=== PATIENT | female | born 1950 ===

== ENCOUNTER 2023-12-24 05:58 | Day surgery (SDC) | payer MEDICARE, OTHER, SELFPAY ==
--- NOTE | 2023-11-19 12:07 | CM ---
Patient is scheduled for an elective L TKR on 12/24/23- she is a same day patient. Spoke with patient prior to surgery. Introduced role of Orthopedic Navigator. Patient reports that he lives with her in a two story home. There are two (1-1)
steps to enter and a flight of steps to the second floor. She currently functions independently. She has no DME and has never had VN services. PCP is Margarita Delvalle.
Discussed orthopedic program and post surgical plans. Reviewed that she will have VN services initially (medicare.gov website and ratings reviewed) and will then start outpatient PT. Patient selects [facility] for her home care needs and is unsure
where she will go for outpatient PT.
Patient is in agreement with plan and states that her will be home with her.
Patient will complete online education.
Plan: Orthopedic Navigator will remain available to assist with the care of patient and will reassess discharge needs after surgery.
[2023-11-30 13:53] LABS: Hematocrit 34.5 % (37.0-47.0); Hemoglobin 11.7 g/dL (12.0-16.0); Mean Corp Hgb Conc. 33.9 g/dL (33.0-37.0); Mean Corpuscular Hgb 29.7 pg (27.0-31.0); Mean Corpuscular Volume 87.6 fL (81.0-99.0); Mean Platelet Volume 10.8 fL (7.4-10.4); Platelet Count 319 10^3/uL (130-400); Red Blood Cell Count 3.94 10^6/uL (4.20-5.40); Red Cell Dist. Width 12.9 % (11.5-14.5); White Blood Cell Count 6.8 10^3/uL (4.8-10.8)
[2023-11-30 14:22] VITALS: BMI 27.0
[2023-11-30 14:30] LABS: ALT (SGPT) 17 U/L (0-35); AST (SGOT) 29 U/L (14-36); Albumin 4.8 g/dl (3.5-5.0); Alkaline Phosphatase 79 U/L (38-126); Blood Urea Nitrogen 36 mg/dl (7-17); Carbon Dioxide 27 mmol/L (22-30); Chloride 101 mmol/L (98-107); Estimated Creatinine Clearance 30 ml/min; Glucose 105 mg/dl (70-99); Potassium 4.2 mmol/L (3.5-5.1); Sodium 140 mmol/L (135-145); Total Bilirubin 0.5 mg/dl (0.2-1.3); Total Protein 7.5 g/dl (6.3-8.2)
[2023-12-01 08:57] LABS: Glycohemoglobin (HgbA1c) 5.7 % (4.0-5.6)
[2023-12-17 13:53] VITALS: BMI 27.0
--- NOTE | 2023-12-21 11:36 | VNURNOTE ---
Late entry from 12/17: H&P emailed to Asa Armstrong and Espinoza Quan at [facility]. Confirmed receipt and acceptance of patient- SDS on 12/23.
[2023-12-24] VITALS (15 sets, daily range): BP systolic 101–148; BP diastolic 58–80; BMI 27.0
[2023-12-24] MEDS: CELEBREX 200 MG PO (06:44)
[2023-12-24] MEDS: TYLENOL 650 MG PO (06:44)
[2023-12-24] MEDS: NORMOSOL-R 1000 IV (06:45)
[2023-12-24] MEDS: ANCEF 5 IV (11:28)
--- NOTE | 2023-12-24 15:39 | OR.RPT ---
Operative Report
Operative Report
Orthopaedic Surgery Operative Note
DATE OF OPERATION: 12/24/2023
PREOPERATIVE DIAGNOSES: Osteoarthritis, left knee.
POSTOPERATIVE DIAGNOSES: Osteoarthritis, left knee.
OPERATION PERFORMED:
1) Left total knee arthroplasty (CPT 95691)
2) Intraosseous administration of analgesic (CPT 34707)
SURGEON: Romeo Byers MD
ASSISTANTS: Sergey Dale PA-C who helped with patient and limb positioning and retraction
ANESTHESIA: Spinal by anesthesia plus intraoperative infusion of morphine into the tibial metaphysis by Dr. Byers
COMPLICATIONS: None.
ESTIMATED BLOOD LOSS: 20mL
DRAINS: None
TOURNIQUET TIME: 46 minutes.
IMPLANTS:
- Sheila Persona CR Femur, size 8
- Sheila Persona tibia base plate, size C
- Sheila Persona ultracongruent articular surface, 12 mm
- All-polyethylene patellar component, size 29
- DJO [place] bone cement
INDICATIONS: The patient presented to my office with debilitating left knee pain due to osteoarthritis. We reviewed the natural history of this problem, as well as the risks, benefits, and alternatives of various treatment options. The patient
exhausted all nonoperative treatment options and wished to proceed with knee replacement surgery. The patient understood the risks which included, but were not limited to, bleeding, infection, failure to relieve pain, more pain than preop, damage to
blood vessels and nerves, need for reoperation, mechanical failure of the implants, wound healing problems, stiffness, instability, blood clot, pulmonary embolism, myocardial infarction, pneumonia, arrhythmia, CVA, and . The patient accepted
these risks and wished to proceed. All questions were answered, and informed consent was obtained.
PROCEDURE IN DETAIL: The patient was identified in the preoperative holding area. The left knee was identified as the operative site. The patient was taken in the operating room and placed in a supine position on the operating table. Spinal
anesthesia was performed. IV antibiotics and tranexamic acid were administered. An SCD was placed on the right lower extremity. A well-padded tourniquet was placed on the proximal thigh. All bony prominences were well padded. The left lower
extremity was prepped and draped in the usual sterile fashion.
We performed a surgical time-out. An interarticular block was performed with local anesthetic with epinephrine. The limb was exsanguinated with an Esmarch bandage, then the tourniquet was inflated to 250 mmHg. I performed interosseous administration
of morphine-saline solution via a Jamshidi style intraosseous needle into the proximal medial tibial metaphysis as described by Babatunde Call MD. This was performed to aid in pain control. A midline skin incision was made followed by a medial
parapatellar arthrotomy. A subperiosteal peel was performed on the medial tibia. I excised part of the infrapatellar fat pad to improve our visualization as well as tissue over anterior femur. The patella was everted and the knee was flexed. I
excised the remnants of the anterior and posterior cruciate ligaments as well as tibial and femoral osteophytes with rongeurs.
The knee was flexed, and the extramedullary tibial cutting guide was aligned. Walton was aligned at neutral, rotation was centered on the tibial tubercle, and coronal alignment was aligned with the mechanical axis of the tibia and center of the ankle
joint. The cut height was 10mm off the lateral tibia joint surface. The guide was secured into place. The MCL and LCL were protected. The tibia surface was cut. The cut surface was inspected after removal to ensure appropriate height and slope based
on the preoperative plan. The cut was checked with a drop marika. It was centered nicely at the ankle.
A drill was used to open the femoral canal. The intramedullary distal femoral cutting guide was inserted into the femur. This was set at 5 degrees +0. This was secured into place with three pins. The cut level was checked with an mena wing. The
distal femur was cut through the cutting guide. The IM guide was reinserted to double check that the level of resection was flush and in appropriate alignment.
Jayde's line and the transepicondylar axis were marked on the femur. The femoral sizing guide was applied to the anterior femur. Pins were inserted, and the 4-in-1 cutting guide was applied and secured into place. The rotation was compared to
Harding's line, the transepicondylar axis, and the neutral tibia cut and was found to be appropriate. The width was checked and found to be appropriate and lateralized on the femur. The anterior, posterior, and chamfur cuts were made. A lamina
mainstreaming facilitator was used to open the flexion gap, and posterior osteophytes were removed with a curved osteotome. The remnant medial and lateral meniscus were also removed. I prophylactically cauterized the lateral geniculate arteries. A 10mm spacer block
was applied to the flexion gap and was noted to be balanced medially and laterally. The knee was extended, and the block showed symmetric to extension and flexion gaps.
The tibia was exposed and sized. Rotation was set in line with the tibial tubercle and congruent with the femur. The D tibia was too wide A to P on the lateral side, so C was seleted. The trial was secured into place with two pins. The trial femur
was impacted into place, and a trial articular surface was placed. The knee was taken through range of motion and noted to be stable throughout the arc of motion without gaping or excess tension. In extension, a measured resection of the patella was
performed. The patella was sized, and lug holes were drilled. A trial patella component was applied, and it was noted to track centrally throughout the arc of motion without need for further releases.
The trials were removed. The tibia keel was prepared with the punch and the drill. The bone surfaces were irrigated with sterile saline and dried. The cement was mixed in a vacuum mixer. Cement gun was used to apply cement to the tibial surface and
the undersurface of the tibial implant. Cement was pressurized into the tibial canal and tibia surface. The tibial component was impacted into place. Excess cement was removed. Cement was applied to the femoral surface and the femoral component. The
femoral component was impacted into place, and excess cement removed. A trial articular surface was inserted, and the knee was extended while the cement polymerized. The tourniquet was let down, and meticulous hemostasis was achieved. Dilute
betadine was poured into the wound and allowed to soak for 3 minutes. The knee was irrigated with copious normal saline.
Once the cement was polymerized, the trial articular surface was removed. Any excess cement was removed. The knee was trialed, and the final articular surface was selected and inserted into the tibial locking mechanism. The knee was reduced. A fresh
drape was applied to the surgical field.
The arthrotomy was closed with 0-PDS. Once closed, an interarticular block was performed with local anesthetic with epi. The deep dermal layer was closed with 2-0 PDS, and the subcuticular skin was closed with 3-0 monocryl. A Dermabond Prineo
dressing was applied to the skin in full flexion. Once this was completely dry, a sterile waterproof dressing was applied.
The anesthesia team performed an adductor canal block in the OR. The patient awoke from anesthesia without any difficulties. The sponge and instrument counts were correct x2 at the end of the case.
Carlos Byers MD
--- NOTE | 2023-12-24 15:49 | PTCARENOTE ---
1415 PT Jody Christiano here for post op PT evaluation, asked Gabriela Walker RN who notified home care about pt's soon departure and delay today. . [facility] called directly . No calls taken today by sds or by pt prior to this time by pt's
cell from [facility]. Pt ready for discharge at 1430, sitting in wheelchair till we contact Home Health. [facility] confirmed via #[phone] they will meet pt at her [facility] and home PT at 1545. pt wheeled to car via w/c at
1510 Gabriela Walker RN
== END 2023-12-24 15:05 | disposition home or self-care (01) ==
LOC: SDS 05:58
PROVIDERS: ATTENDING PHYSICIAN Orthopaedic Surgery; FAMILY PHYSICIAN Family Medicine
DX: M17.12 Unilateral primary osteoarthritis, left knee (principal)
CPT/HCPCS: 27447; 36415; 73560; 80053; 83036; 85027; 86850; 86870; 86880; 86900; 86901; 86905; 87070; 93005; 97163; C1713; C1776

== ENCOUNTER 2024-05-26 06:08 | Day surgery (SDC) | payer MEDICARE, OTHER, SELFPAY ==
--- NOTE | 2024-05-12 11:16 | VNURNOTE ---
Patient is scheduled for an elective R TKR on 05/26/24- she is a same day patient. Spoke with patient prior to surgery. Introduced role of [facility] Liaison. Patient reports that she lives with her in a two story home. There are two (1-1) steps to
enter and a flight of steps to the second floor. She currently functions independently. She has rolling walker and ice pack . She had [facility] VN services for prior knee replacement in Dec. PCP is Margarita Delvalle.
Discussed orthopedic program and post surgical plans. Reviewed that she will have VN services initially and will then start outpatient PT. Patient out of [facility] service area. She will be set up with [facility] for her home care needs. Patient has
outpt PT appt scheduled for 05/30/24. Referral emailed to Espinoza at [facility].
Patient is in agreement with plan and states that her will be home with her. Advised to bring rolling walker with her day of surgery.
Plan: [facility] SDS 05/26/24 then [facility] outpt PT 05/30.
[2024-05-13 13:26] VITALS: BMI 27.0
[2024-05-13 15:07] LABS: Hematocrit 35.5 % (37.0-47.0); Hemoglobin 11.6 g/dL (12.0-16.0); Mean Corp Hgb Conc. 32.7 g/dL (33.0-37.0); Mean Corpuscular Hgb 29.1 pg (27.0-31.0); Mean Corpuscular Volume 89.2 fL (81.0-99.0); Mean Platelet Volume 10.1 fL (7.4-10.4); Platelet Count 301 10^3/uL (130-400); Red Blood Cell Count 3.98 10^6/uL (4.20-5.40); Red Cell Dist. Width 14.1 % (11.5-14.5); White Blood Cell Count 6.8 10^3/uL (4.8-10.8)
[2024-05-13 15:47] LABS: ALT (SGPT) 19 U/L (0-35); AST (SGOT) 22 U/L (14-36); Albumin 4.5 g/dl (3.5-5.0); Alkaline Phosphatase 75 U/L (38-126); Blood Urea Nitrogen 32 mg/dl (7-17); Calcium 9.7 mg/dl (8.4-10.2); Carbon Dioxide 28 mmol/L (22-30); Chloride 100 mmol/L (98-107); Estimated Creatinine Clearance 30 ml/min; Glucose 85 mg/dl (70-99); Potassium 4.2 mmol/L (3.5-5.1); Sodium 139 mmol/L (135-145); Total Bilirubin 0.4 mg/dl (0.2-1.3); Total Protein 7.2 g/dl (6.3-8.2); eGFR 36.57
[2024-05-20 12:34] VITALS: BMI 27.0
[2024-05-26] VITALS (13 sets, daily range): BP systolic 108–153; BP diastolic 60–86; PULSE 95; O2SAT 96
[2024-05-26] MEDS: TYLENOL 650 MG PO (06:14)
[2024-05-26] MEDS: CELEBREX 200 MG PO (06:14)
[2024-05-26] MEDS: NORMOSOL-R/PLASMALYTE-A 1000 IV (06:36)
--- NOTE | 2024-05-26 06:46 | W.DS.TRANS ---
DC Summary - Emd Teacher
-
Discharge Instructions:
Sleep Apnea Risk Low
Discharge Diagnosis/Procedures R TKA 05/26/24
Diet As tolerated
Activity With Walker
Driving Restrictions No driving
Bathing Restrictions OK to Shower
Other Services PT
Instructions:
Stand-Alone Forms: SDS Total Hip and Knee D/C
Changes to Home Medications: Yes
Discharge Medications:
DC Medications w/original date entered in [employer]
albuterol sulfate 90 mcg/actuation aerosol inhaler 1 inh inhalation QIDPRN PRN shortness of breath 12/17/23
ezetimibe 10 mg tablet (Zetia) 10 mg PO DAILY 12/17/23
fenofibrate 54 mg tablet 54 mg PO DAILY 12/17/23
hydrochlorothiazide 25 mg tablet 25 mg PO DAILY 12/17/23
montelukast 10 mg tablet 10 mg PO QPM 12/17/23
multivitamin 1 tab PO DAILY 12/17/23
sertraline 200 mg capsule 200 mg PO DAILY 12/17/23
azelastine 137 mcg (0.1 %) nasal spray 1 spray intranasal BID 05/20/24
biotin 1,000 mcg chewable tablet 1,000 mcg PO DAILY 05/20/24
calcium carbonate 500 mg PO DAILY 05/20/24
cholecalciferol (vitamin D3) 25 mcg (1,000 unit) tablet (Vitamin D3) 25 mcg PO DAILY 05/20/24
flaxseed oil 1,000 mg capsule 1,000 mg PO DAILY 05/20/24
fluticasone 250 mcg-salmeterol 50 mcg/dose blistr powdr for inhalation (Advair Diskus) 1 inh inhalation Q12H 05/20/24
lactobacillus combination no.4 3 billion cell capsule (Probiotic) 3,000 mmu cells PO DAILY 05/20/24
mupirocin 2 % topical ointment 1 applic topical BID 05/20/24
acetaminophen 300 mg-codeine 30 mg tablet 1 tab PO Q4H PRN moderate-severe pain #30 tabs 05/26/24
aspirin 325 mg tablet 325 mg PO DAILY blood clot prevention #1 tab 05/26/24
dexamethasone 4 mg tablet 4 mg PO BID inflammation #6 tabs 05/26/24
docusate sodium 100 mg capsule (Colace) 100 mg PO BID stool softner #1 cap 05/26/24
magnesium hydroxide 400 mg/5 mL oral suspension (Milk of Magnesia) 30 ml PO HS PRN Constipation #1 mL 05/26/24
ondansetron 4 mg disintegrating tablet 4 mg PO Q6H PRN n/v #20 tabs 05/26/24
sennosides 8.6 mg tablet (Senokot) 17.2 mg (2 x 8.6 mg) PO BID laxative #2 tabs 05/26/24
Home Medication Changes
acetaminophen 300 mg-codeine 30 mg tablet 1 tab PO Q4H PRN moderate-severe pain #30 tabs 05/26/24
aspirin 325 mg tablet 325 mg PO DAILY blood clot prevention #1 tab 05/26/24
dexamethasone 4 mg tablet 4 mg PO BID inflammation #6 tabs 05/26/24
docusate sodium 100 mg capsule (Colace) 100 mg PO BID stool softner #1 cap 05/26/24
magnesium hydroxide 400 mg/5 mL oral suspension (Milk of Magnesia) 30 ml PO HS PRN Constipation #1 mL 05/26/24
ondansetron 4 mg disintegrating tablet 4 mg PO Q6H PRN n/v #20 tabs 05/26/24
sennosides 8.6 mg tablet (Senokot) 17.2 mg (2 x 8.6 mg) PO BID laxative #2 tabs 05/26/24
Pending Results: No
--- NOTE | 2024-05-26 09:04 | OR.RPT ---
Operative Report
Operative Report
Orthopaedic Surgery Operative Note
DATE OF OPERATION: 05/26/2024
PREOPERATIVE DIAGNOSES: Osteoarthritis, right knee.
POSTOPERATIVE DIAGNOSES: Osteoarthritis, right knee.
OPERATION PERFORMED:
1) Right total knee arthroplasty (CPT 94043)
2) Intraosseous administration of analgesic (CPT 59630)
SURGEON: Romeo Byers MD
ASSISTANTS: Desmond Davis PA-C who helped with patient and limb positioning and retraction
ANESTHESIA: Spinal by anesthesia plus intraoperative infusion of morphine into the tibial metaphysis by Dr. Byers
COMPLICATIONS: None.
ESTIMATED BLOOD LOSS: 20mL
DRAINS: None
TOURNIQUET TIME: 46 minutes.
IMPLANTS:
- Sheila Persona CR Femur, size 8
- Sheila Persona tibia base plate, size C
- Sheila Persona medial constrained articular surface, 12 mm
- All-polyethylene patellar component, size 29
- DJO [place] bone cement
INDICATIONS: The patient presented to my office with debilitating right knee pain due to osteoarthritis. We reviewed the natural history of this problem, as well as the risks, benefits, and alternatives of various treatment options. The patient
exhausted all nonoperative treatment options and wished to proceed with knee replacement surgery. The patient understood the risks which included, but were not limited to, bleeding, infection, failure to relieve pain, more pain than preop, damage to
blood vessels and nerves, need for reoperation, mechanical failure of the implants, wound healing problems, stiffness, instability, blood clot, pulmonary embolism, myocardial infarction, pneumonia, arrhythmia, CVA, and . The patient accepted
these risks and wished to proceed. All questions were answered, and informed consent was obtained.
PROCEDURE IN DETAIL: The patient was identified in the preoperative holding area. The right knee was identified as the operative site. The patient was taken in the operating room and placed in a supine position on the operating table. Spinal
anesthesia was performed. IV antibiotics and tranexamic acid were administered. An SCD was placed on the left lower extremity. A well-padded tourniquet was placed on the proximal thigh. All bony prominences were well padded. The right lower
extremity was prepped and draped in the usual sterile fashion.
We performed a surgical time-out. An interarticular block was performed with local anesthetic with epinephrine. The limb was exsanguinated with an Esmarch bandage, then the tourniquet was inflated to 250 mmHg. I performed interosseous administration
of morphine-saline solution via a Jamshidi style intraosseous needle into the proximal medial tibial metaphysis as described by Babatunde Call MD. This was performed to aid in pain control. A midline skin incision was made followed by a medial
parapatellar arthrotomy. A subperiosteal peel was performed on the medial tibia. I excised part of the infrapatellar fat pad to improve our visualization as well as tissue over anterior femur. The patella was everted and the knee was flexed. I
excised the remnants of the anterior and posterior cruciate ligaments as well as tibial and femoral osteophytes with rongeurs.
The knee was flexed, and the extramedullary tibial cutting guide was aligned. [place]ble was aligned at neutral, rotation was centered on the tibial tubercle, and coronal alignment was aligned with the mechanical axis of the tibia and center of the ankle
joint. The cut height was 10mm off the lateral tibia joint surface. The guide was secured into place. The MCL and LCL were protected. The tibia surface was cut. The cut surface was inspected after removal to ensure appropriate height and slope based
on the preoperative plan. The cut was checked with a drop marika. It was centered nicely at the ankle.
A drill was used to open the femoral canal. The intramedullary distal femoral cutting guide was inserted into the femur. This was set at 5 degrees +0. This was secured into place with three pins. The cut level was checked with an mena wing. The
distal femur was cut through the cutting guide. The IM guide was reinserted to double check that the level of resection was flush and in appropriate alignment.
Jayde�s line and the transepicondylar axis were marked on the femur. The femoral sizing guide was applied to the anterior femur. Pins were inserted, and the 4-in-1 cutting guide was applied and secured into place. The rotation was compared to
Jayde�s line, the transepicondylar axis, and the neutral tibia cut and was found to be appropriate. The width was checked and found to be appropriate and lateralized on the femur. The anterior, posterior, and chamfur cuts were made. A lamina
family law attorney was used to open the flexion gap, and posterior osteophytes were removed with a curved osteotome. The remnant medial and lateral meniscus were also removed. I prophylactically cauterized the lateral geniculate arteries. A 10mm spacer block
was applied to the flexion gap and was noted to be balanced medially and laterally. The knee was extended, and the block showed symmetric to extension and flexion gaps.
The tibia was exposed and sized. Rotation was set in line with the tibial tubercle and congruent with the femur. The trial was secured into place with two pins. The trial femur was impacted into place, and a trial articular surface was placed. The
knee was taken through range of motion and noted to be stable throughout the arc of motion without gaping or excess tension. In extension, a measured resection of the patella was performed. The patella was sized, and lug holes were drilled. A trial
patella component was applied, and it was noted to track centrally throughout the arc of motion without need for further releases.
The trials were removed. The tibia keel was prepared with the punch and the drill. The bone surfaces were irrigated with sterile saline and dried. The cement was mixed in a vacuum mixer. Cement gun was used to apply cement to the tibial surface and
the undersurface of the tibial implant. Cement was pressurized into the tibial canal and tibia surface. The tibial component was impacted into place. Excess cement was removed. Cement was applied to the femoral surface and the femoral component. The
femoral component was impacted into place, and excess cement removed. A trial articular surface was inserted, and the knee was extended while the cement polymerized. The tourniquet was let down, and meticulous hemostasis was achieved. Dilute
betadine was poured into the wound and allowed to soak for 3 minutes. The knee was irrigated with copious normal saline.
Once the cement was polymerized, the trial articular surface was removed. Any excess cement was removed. The knee was trialed, and the final articular surface was selected and inserted into the tibial locking mechanism. The knee was reduced. A fresh
drape was applied to the surgical field.
The arthrotomy was closed with 0-PDS. Once closed, an interarticular block was performed with local anesthetic with epi. The deep dermal layer was closed with 2-0 PDS, and the subcuticular skin was closed with 3-0 monocryl. A Dermabond Prineo
dressing was applied to the skin in full flexion. Once this was completely dry, a sterile waterproof dressing was applied.
The anesthesia team performed an adductor canal block in the OR. The patient awoke from anesthesia without any difficulties. The sponge and instrument counts were correct x2 at the end of the case.
Carlos Byers MD
[2024-05-26] MEDS: ANCEF 5 IV (11:24)
== END 2024-05-26 11:55 | disposition home or self-care (01) ==
LOC: SDS 06:08
PROVIDERS: ATTENDING PHYSICIAN Orthopaedic Surgery; FAMILY PHYSICIAN Family Medicine
DX: M17.11 Unilateral primary osteoarthritis, right knee (principal)
CPT/HCPCS: 27447; 36415; 73560; 80053; 83036; 85027; 86850; 86870; 86900; 86901; 87070; 97162; C1713; C1776